=== PATIENT | male | born 1950 | race African-American/Black ===

== ENCOUNTER 2020-05-29 10:55 | Observation (INO) ==
[2020-05-29] MEDS ORDERED: SODIUM CHLORIDE 0.9% 500 ML IV STA (11:26)
[2020-05-29] MEDS ORDERED: PANTOPRAZOLE 40 MG VIAL IV STA (11:26)
[2020-05-29 11:53] LABS: Basophils % 0.3 % (0.0-0.8); Eosinophils # 0.1 10*3/uL (0.0-0.87); Eosinophils % 1.6 % (0.00-10.9); Immature Granulocytes % 0.3 %; Immature Granulocytes Absolute 0.02 #; Lymphocytes # 2.1 10*3/uL (1.4-4.0); Lymphocytes % 28.8 % (21.2-54.2); Mean Corpuscular HGB Conc 32.6 GM/DL (32-36); Mean Corpuscular Volume 83.2 FL (87-102); Mean Platelet Volume 11.1 FL (9.6-12.0); Monocytes % 8.3 % (1.7-12.7); Neutrophils % 60.7 % (38.7-73.9); Platelet Count 195 T/CUMM (130-400); Red Blood Count 5.17 MC/CUMM (3.8-5.5); Red Cell Distribution Width 14.9 % (9.3-17.3); White Blood Count 7.3 T/CUMM (4-12)
[2020-05-29 12:04] LABS: INR 1.1; PT Patient Result 11.3 SECS (9.8-11.9); Partial Thromboplastin Time 29.4 SECS (23.9-33.8)
[2020-05-29 12:28] LABS: Albumin 3.9 G/DL (3.4-5.0); Bilirubin,Total 0.5 MG/DL (0.2-1.0); Calcium 9.6 MG/DL (8.5-10.1); Osmolality,Calculated 277.5 MOS/KG (273-304); Total Protein 8.2 G/DL (6.4-8.3)
[2020-05-29] MEDS ORDERED: GLUCAGON 1 MG VIAL IM PRN (14:25)
[2020-05-29] MEDS ORDERED: DEXTROSE 50% 25 GM/50 ML VIAL IV PRN (14:25)
[2020-05-29] MEDS ORDERED: ONDANSETRON 4 MG/2 ML VIAL IV PRN (14:25)
[2020-05-29] MEDS ORDERED: ACETAMINOPHEN 325 MG TABLET PO PRN (14:25)
[2020-05-29 15:47] LABS: Thyroid Stimulating Hormone 1.23 uIU/ml (0.358-3.74)
[2020-05-29] MEDS: LACTATED RINGERS 1,000 ML IV SCH (17:39)
[2020-05-29 17:53] LABS: Hematocrit 41.3 VOL% (42.0-52.0); Hemoglobin 13.4 GM/DL (14.0-18.0)
[2020-05-29 20:33] LABS: Hematocrit 40.2 VOL% (42.0-52.0); Hemoglobin 12.9 GM/DL (14.0-18.0)
[2020-05-29] MEDS: PANTOPRAZOLE 40 MG TABLET PO SCH (20:56)
[2020-05-29] MEDS: SOTALOL 80 MG TABLET PO SCH (20:56)
[2020-05-29] MEDS: TICAGRELOR 90 MG TABLET PO SCH (20:56)
[2020-05-29] MEDS ORDERED: ROSUVASTATIN 20 MG TABLET PO SCH (21:00)
[2020-05-30 02:30] LABS: Hematocrit 37.9 VOL% (42.0-52.0); Hemoglobin 12.2 GM/DL (14.0-18.0)
[2020-05-30] MEDS: LACTATED RINGERS 1,000 ML IV SCH ×2 (03:34→09:44)
[2020-05-30 05:12] LABS: Basophils % 0.3 % (0.0-0.8); Eosinophils # 0.2 10*3/uL (0.0-0.87); Eosinophils % 2.1 % (0.00-10.9); Hematocrit 38.8 VOL% (42.0-52.0); Hemoglobin 12.6 GM/DL (14.0-18.0); Immature Granulocytes % 0.3 %; Immature Granulocytes Absolute 0.02 #; Mean Corpuscular HGB Conc 32.5 GM/DL (32-36); Mean Platelet Volume 10.9 FL (9.6-12.0); Monocytes % 9.5 % (1.7-12.7); Neutrophils % 60.8 % (38.7-73.9); Platelet Count 172 T/CUMM (130-400); Red Blood Count 4.62 MC/CUMM (3.8-5.5); White Blood Count 7.2 T/CUMM (4-12)
[2020-05-30 05:49] LABS: Osmolality,Calculated 278.4 MOS/KG (273-304)
[2020-05-30] MEDS: PANTOPRAZOLE 40 MG TABLET PO SCH (08:46)
[2020-05-30] MEDS: SOTALOL 80 MG TABLET PO SCH (08:46)
[2020-05-30] MEDS: TICAGRELOR 90 MG TABLET PO SCH (08:46)
[2020-05-30 08:52] VITALS: BP 158/78
[2020-05-30] MEDS ORDERED: ASPIRIN EC 81 MG TABLET PO SCH (09:00)
== END 2020-05-30 10:41 | disposition home or self-care (01) ==
LOC: N.ED 10:55 → N.EDINP 10:55 → N.TELEN 16:28
PROVIDERS: ADMIT Emergency Medicine; ATTEND Emergency Medicine